=== PATIENT | female | born 1965 | race Caucasian/White ===

== ENCOUNTER → 2019-05-23 10:05 | Outpatient (BNVA) | payer MEDICARE, SELFPAY | PROVIDERS: Family Provider Nurse Practitioner Family; PCP Nurse Practitioner Family; Referring Provider Nurse Practitioner; Visit Provider Podiatrist Foot & Ankle Surgery | DX: M79.671 Pain in right foot (principal); M79.672 Pain in left foot; Z53.9 Procedure and treatment not carried out, unspecified reason | CPT/HCPCS: 73630; 77077 ==

== ENCOUNTER → 2019-05-25 12:52 | Outpatient (BNVA) | payer MEDICARE, SELFPAY | PROVIDERS: Family Provider Nurse Practitioner Family; PCP Nurse Practitioner Family; Visit Provider Nurse Practitioner | DX: M54.5 Low back pain (principal); Z79.891 Long term (current) use of opiate analgesic | CPT/HCPCS: 99213 ==

== ENCOUNTER → 2019-07-20 13:16 | Outpatient (BNVA) | payer MEDICARE, SELFPAY | PROVIDERS: Family Provider Nurse Practitioner Family; PCP Nurse Practitioner Family; Visit Provider Nurse Practitioner | DX: Z76.89 Persons encountering health services in other specified circumstances (principal) | CPT/HCPCS: 99212 ==

== ENCOUNTER → 2019-09-27 09:20 | Outpatient (BNVA) | payer MEDICARE, SELFPAY | PROVIDERS: Family Provider Nurse Practitioner Family; PCP Nurse Practitioner Family; Visit Provider Anesthesiology | DX: M54.41 Lumbago with sciatica, right side (principal); M47.816 Spondylosis without myelopathy or radiculopathy, lumbar region; G62.9 Polyneuropathy, unspecified; Z79.891 Long term (current) use of opiate analgesic | CPT/HCPCS: 99213; 99214 ==

== ENCOUNTER → 2019-11-09 11:09 | Outpatient (BNVA) | payer MEDICARE, SELFPAY | PROVIDERS: Family Provider Nurse Practitioner Family; PCP Nurse Practitioner Family; Visit Provider Specialist | DX: M25.551 Pain in right hip (principal) | CPT/HCPCS: 73502 ==

== ENCOUNTER → 2019-11-23 13:14 | Outpatient (BNVA) | payer MEDICARE, SELFPAY | PROVIDERS: Family Provider Nurse Practitioner Family; PCP Nurse Practitioner Family; Visit Provider Anesthesiology | DX: M47.816 Spondylosis without myelopathy or radiculopathy, lumbar region (principal); G62.9 Polyneuropathy, unspecified; Z79.891 Long term (current) use of opiate analgesic | CPT/HCPCS: 99213; 99214 ==

== ENCOUNTER → 2019-12-16 12:08 | Outpatient (BNVA) | payer MEDICARE, SELFPAY | PROVIDERS: Family Provider Nurse Practitioner Family; PCP Nurse Practitioner Family; Visit Provider Nurse Practitioner Family | DX: N39.0 Urinary tract infection, site not specified (principal); A49.9 Bacterial infection, unspecified; Z79.899 Other long term (current) drug therapy; Z13.6 Encounter for screening for cardiovascular disorders; E55.9 Vitamin D deficiency, unspecified; R53.83 Other fatigue; R10.9 Unspecified abdominal pain | CPT/HCPCS: 74018; 80053; 81003; 87077; 87086; 87186 ==

== ENCOUNTER → 2020-01-18 13:39 | Outpatient (BNVA) | payer MEDICARE, SELFPAY | PROVIDERS: Family Provider Nurse Practitioner Family; PCP Nurse Practitioner Family; Visit Provider Anesthesiology | DX: M47.816 Spondylosis without myelopathy or radiculopathy, lumbar region (principal); G62.9 Polyneuropathy, unspecified; Z79.1 Long term (current) use of non-steroidal anti-inflammatories (NSAID); Z79.891 Long term (current) use of opiate analgesic | CPT/HCPCS: 99213; 99214 ==

== ENCOUNTER → 2020-03-28 10:01 | Outpatient (BNVA) | payer MEDICARE, SELFPAY | PROVIDERS: Family Provider Nurse Practitioner Family; PCP Nurse Practitioner Family; Visit Provider Anesthesiology | DX: M47.816 Spondylosis without myelopathy or radiculopathy, lumbar region (principal); G62.9 Polyneuropathy, unspecified; M25.551 Pain in right hip; Z79.891 Long term (current) use of opiate analgesic; Z79.1 Long term (current) use of non-steroidal anti-inflammatories (NSAID) | CPT/HCPCS: 99213 ==

== ENCOUNTER → 2020-04-23 14:43 | Outpatient (BNVA) | payer MEDICARE, SELFPAY | PROVIDERS: Family Provider Nurse Practitioner Family; PCP Nurse Practitioner Family; Visit Provider Nurse Practitioner Family | DX: K21.9 Gastro-esophageal reflux disease without esophagitis (principal); Z12.31 Encounter for screening mammogram for malignant neoplasm of breast; E78.2 Mixed hyperlipidemia; Z79.899 Other long term (current) drug therapy; R53.83 Other fatigue; A49.9 Bacterial infection, unspecified; N39.0 Urinary tract infection, site not specified; Z13.6 Encounter for screening for cardiovascular disorders; E55.9 Vitamin D deficiency, unspecified | CPT/HCPCS: 80053; 80061; 81003; 82306; 83036; 84443; 85025; 87077; 87086; 87184 ==

== ENCOUNTER → 2020-05-23 12:52 | Outpatient (BNVA) | payer MEDICARE, SELFPAY | PROVIDERS: Family Provider Nurse Practitioner Family; PCP Nurse Practitioner Family; Visit Provider Nurse Practitioner | DX: M47.816 Spondylosis without myelopathy or radiculopathy, lumbar region (principal); M54.5 Low back pain; G62.9 Polyneuropathy, unspecified; Z79.1 Long term (current) use of non-steroidal anti-inflammatories (NSAID); Z79.891 Long term (current) use of opiate analgesic | CPT/HCPCS: 99213 ==

== ENCOUNTER 2020-05-31 09:17 | Outpatient (CLI) | payer MEDICARE, SELFPAY ==
--- NOTE | 2020-05-31 10:00 | MM_ITS ---
WS: [id number] BILATERAL SCREENING DIGITAL MAMMOGRAM WITH CAD HISTORY: Z12.31 - Encounter for screening mammogram for malignant neoplasm of breast COMPARISON: 03/06/2015 Bilateral CC and MLO views submitted. Computer aided detection analyzed. Breast composition: There are scattered areas of fibroglandular density. No suspicious masses, microc alcifications or architectural distortion. Benign calcifications in each breast. MM/[place] [id number] IMPRESSION: BI-RADS: 2-Benign FOLLOW UP: 1 Year Follow-up
== END 2020-05-31 09:18 | disposition home or self-care (01) ==
LOC: RADSHAW 09:19
PROVIDERS: PCP Nurse Practitioner Family; Visit Provider Nurse Practitioner Family
DX: Z12.31 Encounter for screening mammogram for malignant neoplasm of breast (principal)
CPT/HCPCS: 77067

== ENCOUNTER → 2020-07-24 10:17 | Outpatient (BNVA) | payer MEDICARE, SELFPAY | PROVIDERS: PCP Nurse Practitioner Family; Visit Provider Nurse Practitioner | DX: M54.5 Low back pain (principal); G62.9 Polyneuropathy, unspecified; S73.191A Other sprain of right hip, initial encounter; X58.XXXA Exposure to other specified factors, initial encounter; Z79.1 Long term (current) use of non-steroidal anti-inflammatories (NSAID); Z79.891 Long term (current) use of opiate analgesic | CPT/HCPCS: 99213 ==

== ENCOUNTER → 2020-09-21 13:03 | Outpatient (BNVA) | payer MEDICARE, SELFPAY | PROVIDERS: PCP Nurse Practitioner Family; Visit Provider Nurse Practitioner | DX: M47.816 Spondylosis without myelopathy or radiculopathy, lumbar region (principal); G62.9 Polyneuropathy, unspecified; S73.191A Other sprain of right hip, initial encounter; X58.XXXA Exposure to other specified factors, initial encounter; Z79.1 Long term (current) use of non-steroidal anti-inflammatories (NSAID); Z79.891 Long term (current) use of opiate analgesic | CPT/HCPCS: 99213 ==

== ENCOUNTER → 2020-11-20 12:35 | Outpatient (BNVA) | payer MEDICARE, SELFPAY | PROVIDERS: PCP Nurse Practitioner Family; Visit Provider Nurse Practitioner | DX: M47.816 Spondylosis without myelopathy or radiculopathy, lumbar region (principal); M25.551 Pain in right hip; G62.9 Polyneuropathy, unspecified; Z79.1 Long term (current) use of non-steroidal anti-inflammatories (NSAID); Z79.891 Long term (current) use of opiate analgesic | CPT/HCPCS: 99213 ==

== ENCOUNTER → 2021-01-17 12:38 | Outpatient (BNVA) | payer MEDICARE, SELFPAY | PROVIDERS: PCP Nurse Practitioner Family; Visit Provider Nurse Practitioner | DX: M47.816 Spondylosis without myelopathy or radiculopathy, lumbar region (principal); S73.191A Other sprain of right hip, initial encounter; M25.561 Pain in right knee; G62.9 Polyneuropathy, unspecified; X58.XXXA Exposure to other specified factors, initial encounter; Z79.1 Long term (current) use of non-steroidal anti-inflammatories (NSAID); Z79.891 Long term (current) use of opiate analgesic | CPT/HCPCS: 99213 ==

== ENCOUNTER → 2021-02-05 11:16 | Outpatient (BNVA) | payer MEDICARE, SELFPAY | PROVIDERS: PCP Nurse Practitioner Family; Visit Provider Nurse Practitioner Family | DX: K21.9 Gastro-esophageal reflux disease without esophagitis (principal); E78.2 Mixed hyperlipidemia; E66.01 Morbid (severe) obesity due to excess calories; Z79.899 Other long term (current) drug therapy; E55.9 Vitamin D deficiency, unspecified; R07.89 Other chest pain; Z87.19 Personal history of other diseases of the digestive system; R19.5 Other fecal abnormalities; N39.0 Urinary tract infection, site not specified; A49.9 Bacterial infection, unspecified | CPT/HCPCS: 80053; 80061; 81003; 82306; 83036; 84439; 84443; 85025; 87077; 87086; 87184 ==

== ENCOUNTER → 2021-02-14 11:32 | Outpatient (BNVA) | payer MEDICARE, SELFPAY | PROVIDERS: PCP Nurse Practitioner Family; Visit Provider Nurse Practitioner Family | DX: J06.9 Acute upper respiratory infection, unspecified (principal); E66.01 Morbid (severe) obesity due to excess calories; N39.0 Urinary tract infection, site not specified; A49.9 Bacterial infection, unspecified | CPT/HCPCS: 81003; 87086 ==

== ENCOUNTER → 2021-03-20 11:01 | Outpatient (BNVA) | payer MEDICARE, SELFPAY | PROVIDERS: PCP Nurse Practitioner Family; Visit Provider Anesthesiology | DX: M47.816 Spondylosis without myelopathy or radiculopathy, lumbar region (principal); G62.9 Polyneuropathy, unspecified; Z79.891 Long term (current) use of opiate analgesic | CPT/HCPCS: 99213; 99214 ==

== ENCOUNTER → 2021-03-21 11:51 | Outpatient (BNVA) | payer MEDICARE, SELFPAY | PROVIDERS: PCP Nurse Practitioner Family; Visit Provider Nurse Practitioner Family | DX: R94.4 Abnormal results of kidney function studies (principal) | CPT/HCPCS: 80053; 81003; 82043; 85025 ==

== ENCOUNTER 2021-03-27 09:53 | Outpatient (CLI) | payer MEDICARE, SELFPAY ==
--- NOTE | 2021-03-27 10:15 | US_ITS ---
WS: [id number] ULTRASOUND ABDOMEN CLINICAL INFORMATION: Z87.19 - Personal history of other diseases of the digest... COMPARISON: None. FINDINGS: Technically difficult exam Liver Size: Normal. Craniocaudal length: 15.7 cm. Echogenicity: Coarse Surface nodularity: None. Mass (size and location): None. Bile ducts Intrahepatic ducts: Normal. Gallbladder Normal Gallstones: None. Gallbladder sludge: None. Gallbladder wall thickening: None. Pericholecystic fluid: None. Sonographic James sign: Absent. Pancreas Normal as visualized. Spleen Splenomegaly: None. Craniocaudal length: 10.0 cm. Right kidney: Normal. Hydronephrosis: None. Size: 12.4 cm x 3.4 cm x 5.2 cm Left kidney: Normal. Hydronephrosis: None. Size: 12.1 cm x 3.8 cm x 5.3 cm. Abdominal aorta and IVC Visualized portions are normal. Ascites: None. US/US abdomen complete* [id number] IMPRESSION: Technically difficult examination 1. Diffuse fatty infiltration liver. 2. Gallbladder appears normal. No cholelithiasis. No gallbladder wall thickeni ng or pericholecystic fluid. 3. No hydronephrosis in either kidney.
== END 2021-03-27 09:54 | disposition home or self-care (01) ==
LOC: US 09:54
PROVIDERS: PCP Nurse Practitioner Family; Visit Provider Nurse Practitioner Family
DX: Z87.19 Personal history of other diseases of the digestive system (principal); K76.0 Fatty (change of) liver, not elsewhere classified
CPT/HCPCS: 76700

== ENCOUNTER → 2021-04-22 08:55 | Outpatient (BNVA) | payer MEDICARE, SELFPAY | PROVIDERS: PCP Nurse Practitioner Family; Visit Provider Surgery | DX: K21.9 Gastro-esophageal reflux disease without esophagitis (principal) | CPT/HCPCS: 87635 ==

== ENCOUNTER 2021-04-25 07:23 | Day surgery (SDC) | payer MEDICARE, OTHER, SELFPAY ==
[2021-04-23 09:50] VITALS: BMI 36.0
--- NOTE | 2021-04-25 07:56 | ANES.PREANE2 ---
Pre-Anesthetic Assessment Pre-Anesthetic Assessment: Height/Weight: Height 1.6 m Weight 95.254 kg Proposed Procedure: Operation Date: 04/25/21 09:15 Proposed Procedures p EGD 65084 K21.9(Not Applicable) - Vinicius Ohara MD Was Beta Alfonso taken within 24 hours: N/A Was Clonidine taken within 24 hours: N/A Social: Social History: No alcohol and No tobacco Exam: Pre-Anes Outpt Exam: alert, oriented x 3, clear to auscultation bilaterally and regular rate & rhythm Airway: Submandibular: WNL Cervical ROM: WNL MP: 2 Dentition: Full GI: GI: GERD Metabolic: Metabolic: Morbid obesity Musc/skel: Musc/skel: Lower Back Pain and OA/DJD Comments: Chronic pain/opioid Neuropsych: Neuropsych: Anxiety and Depression Anesthetic Plan: ASA status: 3 Anesthesia: MAC Risk of > 500 ml blood loss (7ml/kg in children): No PFSH Anesthesia PFSH: Medical History Abnormal renal function test Bacterial UTI BMI 35.0-35.9,adult Breast cancer screening by mammogram Prem-colored stools Constipation DDD (degenerative disc disease) Cervical and Lumbar Encounter for long-term (current) use of NSAIDs Gastroesophageal reflux disease H/O cholecystitis Long-term current use of opiate analgesic Lumbar radiculitis Medication management Menopausal symptoms Mixed hyperlipidemia Morbid obesity Neuropathy Sensation of chest pressure Spondylosis without myelopathy or radiculopathy, lumbar region Vitamin D deficiency Surgical History History of bladder surgery History of hysterectomy Hx of tubal ligation Family History Other CAD (coronary artery disease) Cancer Chronic kidney disease (CKD) Dementia Diabetes Family history of premature coronary artery disease Hyperlipidemia Hypertension Denies family history of Clotting disorder Psychiatric illness Suicide Anesthesia complication Bleeding disorder Lung disease Stroke Social History Smoking and tobacco status: never smoked Second hand smoke exposure: No Alcohol intake: never Desire information about alcohol rehabilitation?: No Marital status: Current occupational status: employed Current occupation: caregiver independent living History of recent travel: No Data Anesthesia Cardiac Studies: No Data to Display
[2021-04-25 08:17] VITALS: BP 170/96; PULSE 67; RESP 18; TEMP 36.1; O2SAT 95
[2021-04-25] MEDS: sodium chloride 0.9% 1,000 ML 30 ML IV (08:22)
--- NOTE | 2021-04-25 09:06 | W.PM.OPSFHP ---
Same Day Surgery H&P Indication for Procedure/HPI DATE OF PROCEDURE: April 25, 2021 CHIEF COMPLAINT/INDICATIONFOR SURGICAL PROCEDURE: Acid reflux PREOP DIAGNOSIS: Acid reflux associated with morbid obesity PLANNED PROCEDRUE: Operation Date: 04/25/21 09:15 Proposed Procedures p EGD 61606 K21.9(Not Applicable) - Vinicius Ohara MD This is a pleasant 56 years old female patient morbidly obese with associated multiple medical comorbidities including but not limited to persistent acid reflux in spite of being on PPI therapy for more than 6 months ROS All systems have been reviewed negative except as per the above or per problem list Medications/Allergies* Home Medications Medication Instructions Recorded Confirmed Type potassium gluconate 595 mg (99 mg) 595 mg PO DAILY 03/20/21 04/25/21 History tablet esomeprazole magnesium 40 mg PO DAILY 04/23/21 04/25/21 History paroxetine HCl 10 mg PO DAILY 04/23/21 04/25/21 History Allergies/Adverse Reactions Allergy/AdvReac Type Severity Reaction Status Date / Time meloxicam AdvReac VOMITING/ Verified 04/25/21 09:07 NAUSEA pregabalin [From Lyrica] AdvReac N/V Verified 04/25/21 09:07 tramadol AdvReac ABD PAIN, Verified 04/25/21 09:07 N/V Current Medications: Generic Name Dose Route Start Last Admin Trade Name Freq PRN Reason Stop Dose Admin Sodium Chloride 1,000 mls @ 30 mls/hr 04/25/21 08:15 04/25/21 08:22 Sodium Chloride 0.9% IV 30 mls/hr .Q24H LESTER Administration Pertinent History/Comorbid Conditions* Medical History (Updated 03/21/21 @ 11:47 by JANKI Calixto) Abnormal renal function test Bacterial UTI BMI 35.0-35.9,adult Breast cancer screening by mammogram Prem-colored stools Constipation DDD (degenerative disc disease) Cervical and Lumbar Encounter for long-term (current) use of NSAIDs Gastroesophageal reflux disease H/O cholecystitis Long-term current use of opiate analgesic Lumbar radiculitis Medication management Menopausal symptoms Mixed hyperlipidemia Morbid obesity Neuropathy Sensation of chest pressure Spondylosis without myelopathy or radiculopathy, lumbar region Vitamin D deficiency Surgical History (Updated 05/25/19 @ 13:28 by IGLESIA Mckoy) History of bladder surgery History of hysterectomy Hx of tubal ligation Family History (Updated 05/23/19 @ 10:24 by Kristin Gan LPN) Diabetes CAD (coronary artery disease) Dementia Hyperlipidemia Chronic kidney disease (CKD) Family history of premature coronary artery disease Cancer Hypertension Denies family history of Clotting disorder Psychiatric illness Suicide Anesthesia complication Bleeding disorder Lung disease Stroke Social History Smoking and tobacco status: never smoked Second hand smoke exposure: No Alcohol intake: never Desire information about alcohol rehabilitation?: No Marital status: Current occupational status: employed Current occupation: caregiver independent living History of recent travel: No Pertinent Exam Findings alert, oriented x 3 and procedure specific exam findings (Abdominal examination nontender nondistended soft) Recommendations Surgery/Procedure today (EGD with possible biopsy) Other Plans: Plan of care; After thorough history and physical examination and reviewing the chart, plan to perform a diagnostic esophagogastroduodenoscopy with possible biopsy in the GI lab. I discussed with the patient in detail the risk,benefits,alternatives and indications.The risk of aspiration, bleeding, soft tissue injury, perforation of the stomach/esophagus and other potential concomitant complications were explained to the patient in details,aslo the potential need for Thoracic and or Abdominal surgery to repair any complications.The patient understood this well and did agree to proceed. Rationale was carefully and clearly discussed with the patient.Appropriate informed consent have been reviewed and signed All questions have been answered and all concerns have been addressed to patient's satisfaction. Coding Level of Care Code Acute Strike Planning Applications for Sid Delgado
[2021-04-25 10:18] VITALS: BP 155/84; PULSE 66; RESP 18; TEMP 36.9; O2SAT 97
[2021-04-25 10:39] VITALS: BP 152/82; PULSE 64; RESP 16; O2SAT 98
--- NOTE | 2021-04-25 11:19 | ANE.PACU2 ---
Inpatient post-anesthesia follow up: Airway intact: Yes Vital signs: Temperature 98.4 F Pulse Rate 64 Respiratory Rate 16 Blood Pressure 152/82 Pulse Oximetry 98 Oxygen Delivery Me thod Room Air Oxygen Flow Rate 4 Fraction of Inspir ed Oxygen Hydration adequate: Yes Nausea and vomiting: No Pain level: 1 Mental status: Baseline
== END 2021-04-25 10:47 | disposition home or self-care (01) ==
PROVIDERS: PCP Nurse Practitioner Family; Visit Provider Surgery
PROC: 0DJ08ZZ Inspection of Upper Intestinal Tract, Via Natural or Artificial Opening Endoscopic (ICD-10-PCS; CPT 43235; principal; 2021-04-25 09:15)
DX: K21.9 Gastro-esophageal reflux disease without esophagitis (principal); K44.9 Diaphragmatic hernia without obstruction or gangrene; K29.70 Gastritis, unspecified, without bleeding; K31.7 Polyp of stomach and duodenum; E66.01 Morbid (severe) obesity due to excess calories; Z68.37 Body mass index [BMI] 37.0-37.9, adult; Z79.1 Long term (current) use of non-steroidal anti-inflammatories (NSAID); Z79.891 Long term (current) use of opiate analgesic; E78.2 Mixed hyperlipidemia; Z82.49 Family history of ischemic heart disease and other diseases of the circulatory system; Z83.3 Family history of diabetes mellitus
CPT/HCPCS: 43239; 88305; 96360; 96361; J2704; J7030

== ENCOUNTER → 2021-05-17 09:46 | Outpatient (BNVA) | payer MEDICARE, SELFPAY | PROVIDERS: PCP Nurse Practitioner Family; Visit Provider Anesthesiology | DX: M47.816 Spondylosis without myelopathy or radiculopathy, lumbar region (principal); M25.551 Pain in right hip; M25.569 Pain in unspecified knee; Z79.891 Long term (current) use of opiate analgesic | CPT/HCPCS: 99213 ==

== ENCOUNTER 2021-07-02 08:08 | Outpatient (CLI) | payer MEDICARE, OTHER, SELFPAY ==
--- NOTE | 2021-07-02 08:11 | FL_ITS ---
WS: [id number] Barium swallow and esophagram, upper GI series with air, 07/02/2021 Clinical Data: K29.70 - Gastritis, unspecified, without bleeding Comparison: None. Fluoroscopy time: 1.4 minutes. Findings: The patient swallowed the thick and thin barium, and it flowed to the hypopharynx without hesitation. No stricture, mass, polyp or erosion was seen. The barium entered the esophagus and there was poor motility throughout. There is a large hiatal ranjan ia present. Approximately one third of the stomach is above the left diaphragm. No reflux was seen. N o erosion or ulceration of the distal esophagus was seen. The barium passed into the stomach which wa s well distended. No erosion, polyp, mass or deformity could be seen. No gastric ulcer was present. Barium then passed into the duodenal bulb which distended normally without ulceration. The proximal small bowel is normal. FL/FL upper GI w air* [id number] Impression: 1. Large hiatal hernia with approximately one third of the stomach above the le ft diaphragm. 2. Negative for reflux, erosion or ulceration of the esophagus, stomach or duod enal bulb.
== END 2021-07-02 08:09 | disposition home or self-care (01) ==
LOC: RAD 08:09
PROVIDERS: PCP Nurse Practitioner Family; Visit Provider Surgery
DX: K29.70 Gastritis, unspecified, without bleeding (principal); K44.9 Diaphragmatic hernia without obstruction or gangrene
CPT/HCPCS: 74246

== ENCOUNTER → 2021-09-04 14:23 | Outpatient (BNVA) | payer MEDICARE, OTHER, SELFPAY | PROVIDERS: PCP Family Medicine; Visit Provider Surgery | DX: K44.9 Diaphragmatic hernia without obstruction or gangrene (principal) | CPT/HCPCS: 99213 ==

== ENCOUNTER → 2021-11-21 14:19 | Outpatient (BNVA) | payer MEDICARE, OTHER, SELFPAY | PROVIDERS: PCP Family Medicine; Visit Provider Family Medicine | DX: M47.816 Spondylosis without myelopathy or radiculopathy, lumbar region (principal); E66.01 Morbid (severe) obesity due to excess calories; K29.70 Gastritis, unspecified, without bleeding; G62.9 Polyneuropathy, unspecified; G89.29 Other chronic pain; Z02.89 Encounter for other administrative examinations; Z79.899 Other long term (current) drug therapy | CPT/HCPCS: 80307 ==

== ENCOUNTER 2022-01-09 16:52 | Emergency (ER) | payer MEDICARE, SELFPAY ==
[2022-01-09 16:55] VITALS: BP 176/70; PULSE 75; RESP 18; TEMP 36.9; O2SAT 95; BMI 36.7
--- NOTE | 2022-01-09 17:32 | XRR_ITS ---
PROCEDURE INFORMATION: Exam: XR Chest Exam date and time: 01/09/2022 5:59 PM Age: 56 years old Clinical indication: Cough; Additional info: Cough, congestion, dyspnea TECHNIQUE: Imaging protocol: Radiologic exam of the chest. Views: 1 view. COMPARISON: CT chest w con* [id number] 09/04/2015 9:47 PM FINDINGS: Lungs: Unremarkable. No consolidation. Pleural spaces: Unremarkable. No pleural effusion. No pneumothorax. Heart/Mediastinum: Stable moderate intrathoracic hiatal hernia. Bones/joints: Unremarkable. XR/XR chest 1V portable [id number] IMPRESSION: 1. Stable moderate intrathoracic hiatal hernia. 2. No obvious active infiltrate or failure.
--- NOTE | 2022-01-09 17:33 | W.ED.URI ---
HPI - URI/Sore Throat General: Chief Complaint: Upper Respiratory Infection Stated Complaint: SOB, sent by Time Seen by Provider: 01/09/22 17:11 History of Present Illness: 56-year-old female comes in today with complaints of cough and congestion in the chest. Patient reports illness for the last 2 days. Patient was seen by her home health nurse today and was recommended to be evaluated. Patient had recently had a knee surgery done last week. Patient appears nontoxic. Patient appears in no pain. Patient does have a history of chronic pain, gastritis, and GERD. Patient did admit to a history of asthma in childhood. Associated symptoms: Deny fever(s) or vomiting Review of Systems Const: Denies: fever(s) Resp: Reports: dyspnea and non-productive cough GI: Denies: vomiting Skin/Breast: Denies: rash PFSH ED PFSH: Medical History Abnormal renal function test Bacterial UTI BMI 35.0-35.9,adult Breast cancer screening by mammogram Chronic pain Prem-colored stools Constipation DDD (degenerative disc disease) Cervical and Lumbar Encounter for long-term (current) use of NSAIDs Gastroesophageal reflux disease H/O cholecystitis Long-term current use of opiate analgesic Lumbar radiculitis Medication management Menopausal symptoms Mixed hyperlipidemia Morbid obesity Neuropathy Sensation of chest pressure Spondylosis without myelopathy or radiculopathy, lumbar region Vitamin D deficiency Surgical History History of bladder surgery History of hysterectomy Hx of tubal ligation Family History Other CAD (coronary artery disease) Cancer Chronic kidney disease (CKD) Dementia Diabetes Family history of premature coronary artery disease Hyperlipidemia Hypertension Denies family history of Clotting disorder Psychiatric illness Suicide Anesthesia complication Bleeding disorder Lung disease Stroke Social History Smoking and tobacco status: never smoked Second hand smoke exposure: No Alcohol intake: never Desire information about alcohol rehabilitation?: No Marital status: Current occupational status: employed Current occupation: caregiver independent living History of recent travel: No Physical Exam Const: COMMON NORMALS: alert HENMT: COMMON NORMALS: normocephalic HEAD & SCALP: normocephalic NOSE: Nasal discharge present Neck/C-Spine: COMMON NORMALS: full ROM Resp: COMMON NORMALS: normal respiratory effort AUSCULTATION: wheezes expiratory wheezes Cardio: COMMON NORMALS: regular rate and regular rhythm RATE: regular rate RHYTHM: regular rhythm Extremity: COMMON NORMALS: no pedal edema NARRATIVE EXTREMITY EXAM: Mild right lower extremity swelling, no calf pain. Neuro: SENSORIUM/ORIENTATION: Yes alert Skin: COMMON NORMALS: turgor normal GENERAL SKIN EXAM: turgor normal Course Vital Signs: Vital signs: Vital Signs Temperature 98.5 F 01/09/22 16:55 Pulse Rate 74 01/09/22 18:06 Respiratory Rate 18 01/09/22 18:06 Blood Pressure 176/70 01/09/22 16:55 Pulse Oximetry 96 01/09/22 18:06 Oxygen Delivery Me thod 01/09/22 18:06 MDM - URI/Sore Throat Medical Decision Making 56-year-old female comes in today for complaints of cough and congestion for the last 2 to 3 days. Patient is concerned because of recent surgery. On exam patient had some auscultated expiratory wheezes. Decreased air movement in the lower lung lobato. Heart rate is regular. No edema is noted in lower extremities. Patient does have some mild swelling to the right knee due to recent surgery. Differential diagnosis includes not limited to pneumonia, bronchitis, asthma. Chest x-ray noted no specific consolidation suggestive of pneumonia. Patient had a negative COVID test at home. We will treat patient for acute bronchitis with doxycycline, 10 mg of dexamethasone IM, and a new albuterol inhaler. Patient reported understanding of care plan need for follow-up or return to the ER. Discharge Plan Discharge Patient Disposition: Home Clinical Impression: Bronchitis after surgery Condition: Stable Prescriptions: New doxycycline monohydrate 100 mg capsule 100 mg PO BID 7 Days Qty: 14 0RF No Action potassium gluconate 595 mg (99 mg) tablet 595 mg PO DAILY ibuprofen 800 mg tablet 800 mg PO BID PRN (Reason: pain) Qty: 180 2RF Hold Instructions: Resume on 05/01/21. esomeprazole magnesium 40 mg capsule,delayed release(DR/EC) See Rx Instructions .ROUTE .COMPLEX Qty: 90 1RF Dose Instruction: TAKE 1 CAPSULE BY MOUTH DAILY Rx Instructions: TAKE 1 CAPSULE BY MOUTH DAILY gabapentin 600 mg tablet 600 mg PO BID 90 Days Qty: 180 1RF hydrocodone-acetaminophen 10-325 mg tablet 1 tab PO .6 times a day PRN (Reason: Pain) 30 Days Qty: 180 0RF Rx Instructions: donot fill before 12/22/2021 phentermine 37.5 mg tablet 37.5 mg PO DAILY 30 Days Qty: 30 0RF Rx Instructions: must administer 30 minutes before or 1-2 hours after breakfast donot fill before 12/22/2021 liraglutide 0.6 mg/0.1 mL (18 mg/3 mL) pen injector 0.6 mg SUBCUT DAILY Qty: 6 3RF tizanidine 4 mg tablet See Rx Instructions .ROUTE .COMPLEX Qty: 90 0RF Dose Instruction: TAKE 1 TABLET BY MOUTH THREE TIMES DAILY NEEDED FOR MUSCLE SPASMS Rx Instructions: TAKE 1 TABLET BY MOUTH THREE TIMES DAILY NEEDED FOR MUSCLE SPASMS Discharge Orders: Discharge ED (Routine); Ordered 01/09/22 Ordered By: Tien Moreno Referrals: Pee Allred MD [Primary Care Provider] - Discharge Diet: Usual diet Discharge Activity: Increase activity as tolerated Patient Instructions: Acute Bronchitis (ED) Activity Restrictions/Additional Instructions: Take medication as directed. Use inhaler 2 puffs every 4 hours as needed for cough, congestion, or shortness of breath. Follow-up with primary care in 2 to 3 days for recheck. Return to ER for severe chest pain, increased shortness of breath, or new concerns. Coding Level of Care Code ED Supervisor Forming Department for Sid Fwd Exam Detailed
[2022-01-09] MEDS: albuterol 8 gm MDI 2 PUFF INHALATION (18:01)
[2022-01-09 18:06] VITALS: PULSE 74; RESP 18; O2SAT 96
[2022-01-09] MEDS: dexamethasone 10 mg/mL INJ IM (18:24)
[2022-01-09] MEDS: doxycycline 100 mg Tablet PO (18:24)
[2022-01-09 18:29] VITALS: BP 151/82; PULSE 70; RESP 17; TEMP 36.6; O2SAT 95
== END 2022-01-09 18:34 | disposition home or self-care (01) ==
PROVIDERS: Emergency Provider Nurse Practitioner Family; PCP Family Medicine
DX: J40 Bronchitis, not specified as acute or chronic (principal); Z79.899 Other long term (current) drug therapy; E78.2 Mixed hyperlipidemia
CPT/HCPCS: 71045; 94640; 96372; 99284; J1100; J3535

== ENCOUNTER → 2022-06-18 13:43 | Outpatient (BNVA) | payer MEDICARE, SELFPAY | PROVIDERS: PCP Family Medicine; Visit Provider Family Medicine | DX: M47.816 Spondylosis without myelopathy or radiculopathy, lumbar region (principal); E66.01 Morbid (severe) obesity due to excess calories; Z79.899 Other long term (current) drug therapy; K29.70 Gastritis, unspecified, without bleeding; G89.29 Other chronic pain; E66.9 Obesity, unspecified; Z79.1 Long term (current) use of non-steroidal anti-inflammatories (NSAID); Z79.891 Long term (current) use of opiate analgesic | CPT/HCPCS: 80307 ==

== ENCOUNTER → 2023-01-28 11:15 | Outpatient (BNVA) | payer MEDICARE, SELFPAY | PROVIDERS: PCP Family Medicine; Visit Provider Family Medicine | DX: Z23 Encounter for immunization (principal); E78.2 Mixed hyperlipidemia; Z79.899 Other long term (current) drug therapy; Z79.1 Long term (current) use of non-steroidal anti-inflammatories (NSAID); Z71.89 Other specified counseling; F41.9 Anxiety disorder, unspecified; Z98.84 Bariatric surgery status; K44.9 Diaphragmatic hernia without obstruction or gangrene | CPT/HCPCS: 80053; 80061; 82306; 82607; 82746; 84443; 85025 ==

== ENCOUNTER 2023-02-16 17:39 | Emergency (ER) | payer MEDICARE, SELFPAY ==
[2023-02-16 17:50] VITALS: BP 171/89; PULSE 83; RESP 18; TEMP 36.6; O2SAT 98; BMI 27.1
--- NOTE | 2023-02-16 18:13 | XRR_ITS ---
PROCEDURE INFORMATION: Exam: XR Chest Exam date and time: 02/16/2023 6:20 PM Age: 57 years old Clinical indication: Shortness of breath; Additional info: SOB TECHNIQUE: Imaging protocol: Radiologic exam of the chest. Views: 1 view. COMPARISON: CR XR chest 1V portable [id number] 01/09/2022 5:59 PM FINDINGS: Lungs: Unremarkable. No consolidation. Pleural spaces: Unremarkable. No pleural effusion. No pneumothorax. Heart/Mediastinum: Unremarkable. No cardiomegaly. Bones/joints: Unremarkable. XR/XR chest 1V portable [id number] IMPRESSION: No acute findings.
--- NOTE | 2023-02-16 19:25 | W.ED.FEMALGU ---
HPI - Female Genitourinary General: Chief complaint: Urogenital-Female Stated complaint: covid symptoms, also general medical Time Seen by Provider: 02/16/23 19:25 History of Present Illness: 57-year-old female comes in today for complaints of flulike symptoms, urinary tract symptoms, and out of chronic pain medication. Patient appears nontoxic. Patient appears mild pain. Review of Systems General: Reports: 10 or more systems reviewed and unremarkable except in HPI and below Const: Reports: malaise Resp: Reports: non-productive cough : Reports: difficulty voiding PFSH ED PFSH: Medical History Abnormal renal function test Bacterial UTI BMI 35.0-35.9,adult Breast cancer screening by mammogram Chronic pain Prem-colored stools Constipation DDD (degenerative disc disease) Cervical and Lumbar Encounter for long-term (current) use of NSAIDs Gastroesophageal reflux disease H/O cholecystitis Long-term current use of opiate analgesic Lumbar radiculitis Medication management Menopausal symptoms Mixed hyperlipidemia Morbid obesity Neuropathy Sensation of chest pressure Spondylosis without myelopathy or radiculopathy, lumbar region Vitamin D deficiency Surgical History History of bladder surgery History of hysterectomy Hx of tubal ligation Family History Other CAD (coronary artery disease) Cancer Chronic kidney disease (CKD) Dementia Diabetes Family history of premature coronary artery disease Hyperlipidemia Hypertension Denies family history of Clotting disorder Psychiatric illness Suicide Anesthesia complication Bleeding disorder Lung disease Stroke Social History Smoking and tobacco/nicotine status: never used tobacco/nicotine Second hand smoke exposure: No Alcohol intake: never Substance/Drug Use: never Marital status: Current occupational status: employed Current occupation: caregiver independent living Physical Exam Const: COMMON NORMALS: alert HENMT: COMMON NORMALS: normocephalic HEAD & SCALP: normocephalic Neck/C-Spine: COMMON NORMALS: full ROM Resp: COMMON NORMALS: normal respiratory effort and clear to auscultation bilaterally AUSCULTATION: clear to auscultation bilaterally Cardio: COMMON NORMALS: regular rate RATE: regular rate Back/Pelvis: COMMON NORMALS: thoracic and lumbar spine normal to inspection Extremity: COMMON NORMALS: no pedal edema Neuro: SENSORIUM/ORIENTATION: Yes alert Skin: COMMON NORMALS: turgor normal GENERAL SKIN EXAM: turgor normal Course Vital Signs: Vital signs: Vital Signs Temperature 97.9 F 02/16/23 17:50 Pulse Rate 83 02/16/23 17:50 Respiratory Rate 18 02/16/23 17:50 Blood Pressure 171/89 02/16/23 17:50 Pulse Oximetry 98 02/16/23 17:50 Oxygen Delivery Me thod Room Air 02/16/23 17:50 MDM - Female Medical Decision Making Patient comes in today for some complaints of urinary discomfort, flulike symptoms, and being out of her pain medication. On exam patient appears nontoxic. Patient appears in mild discomfort. Respirations are even lungs are clear to auscultation. Vital signs are normal except for some elevated blood pressure. Differential diagnosis includes but not limited to chronic pain management, urinary tract infection, upper respiratory infection, COVID-19. COVID test was negative. Urinalysis did was positive for nitrates and leukocyte esterases. Patient will be treated for urinary tract infection with cephalexin. Patient was given 1 tablet of hydrocodone and recommended to follow-up with specialist or primary care for refills of medicines as she is in a pain contract. Patient reported understanding and agreed to plan. Lab Data Radiology Impressions Chest X-Ray 02/16/23 18:13 IMPRESSION: No acute findings. Laboratory Results Urine Color Yellow (Yellow) 02/16/23 20:05 Urine Appearance Hazy (CLEAR) A 02/16/23 20:05 Urine pH 6 (5-7) 02/16/23 20:05 Ur Specific [place] 1.020 (1.005-1.030) 02/16/23 20:05 Urine Protein 1+ (Negative) H 02/16/23 20:05 Urine Glucose (UA) Norm (Normal) 02/16/23 20:05 Urine Ketones Negative (Negative) 02/16/23 20:05 Urine Blood Neg (Negative) 02/16/23 20:05 Urine Nitrate Positive (Negative) H 02/16/23 20:05 Urine Bilirubin 1+ (Negative) H 02/16/23 20:05 Urine Urobilinogen Neg mg/dL (Negative) 02/16/23 20:05 Ur Leukocyte Esterase 1+ (Negative) H 02/16/23 20:05 Urine RBC 0-4 /hpf (0-2) H 02/16/23 20:05 Urine WBC 5-10 /hpf (0-5) H 02/16/23 20:05 Ur Squamous Epith Cells 5-10 /hpf (0-5) H 02/16/23 20:05 Amorphous Sediment Not Reportable 02/16/23 20:05 Urine Bacteria 3+ /hpf (NONE) H 02/16/23 20:05 SARS-CoV-2 Ag (Rapid) negative (Negative) 02/16/23 20:08 No radiology studies performed this visit Discharge Plan Discharge Patient Disposition: Home Clinical Impression: Bacterial UTI, Pain management contract signed URI (upper respiratory infection) Qualifiers: URI type: unspecified URI Qualified Code(s): J06.9 - Acute upper respiratory infection, unspecified Condition: Stable Prescriptions: New cephalexin 500 mg capsule 500 mg PO BID 7 Days Qty: 14 0RF No Action potassium gluconate 595 mg (99 mg) tablet 595 mg PO DAILY Fluarix Quad (PF) 60 mcg (15 mcg x 4)/0.5 mL syringe 0.5 ml IM ONCE Qty: 0.5 0RF multivitamin Tablet 1 tab PO DAILY 90 Days Qty: 90 1RF mecobalamin (vitamin B12) 1,000 mcg tablet,chewable 1,000 mcg PO DAILY 90 Days Qty: 90 1RF ferrous fumarate 325 mg (106 mg iron) tablet 325 mg PO DAILY 90 Days Qty: 90 0RF alprazolam [Xanax] 0.5 mg tablet 0.5 mg PO BID PRN (Reason: anxiety) 7 Days Qty: 14 0RF tizanidine 4 mg tablet See Rx Instructions .ROUTE .COMPLEX Qty: 90 0RF Dose Instruction: TAKE 1 TABLET BY MOUTH THREE TIMES DAILY NEEDED FOR MUSCLE SPASMS Rx Instructions: TAKE 1 TABLET BY MOUTH THREE TIMES DAILY NEEDED FOR MUSCLE SPASMS hydrocodone-acetaminophen 10-325 mg tablet 1 tab PO .6 times a day PRN (Reason: Pain) 30 Days Qty: 180 0RF gabapentin 600 mg tablet See Rx Instructions .ROUTE .COMPLEX Qty: 270 0RF Dose Instruction: TAKE 1 TABLET BY MOUTH THREE TIMES DAILY FOR PAIN Rx Instructions: TAKE 1 TABLET BY MOUTH THREE TIMES DAILY FOR PAIN pantoprazole [Protonix] 40 mg tablet,delayed release (DR/EC) 40 mg PO DAILY 30 Days Qty: 30 5RF Discharge Orders: Discharge ED (Routine); Ordered 02/16/23 Ordered By: Tien Moreno Referrals: Pee Allred MD [Primary Care Provider] - Discharge Diet: Usual diet Discharge Activity: Increase activity as tolerated Patient Instructions: Urinary Tract Infection in Older Adults (ED), Pain Management Activity Restrictions/Additional Instructions: Follow-up with primary care or ceramic painter for further evaluation and treatment. You have a pain contract with this medical provider and it does not allow us to write for your narcotic prescriptions. You need to go through the medical provider that prescribes the services for your refills. Take antibiotics as directed for urinary tract infection return to ED for new concerns. Coding Level of Care Code ED Pin Setter for Sid Delgado
[2023-02-16 20:30] LABS: Add Urine Microscopic? YES; Bilirubin Urine 1+ (Negative); Blood Urine Neg (Negative); Glucose Urine UA Norm (Normal); Ketones Urine Negative (Negative); Leukocyte Esterase Urine 1+ (Negative); Nitrate Urine Positive (Negative); Protein Urine 1+ (Negative); Urine Appearance Hazy (CLEAR); Urine Color Yellow (Yellow); Urobilinogen Urine Neg (Negative); pH Urine 6 (5-7)
[2023-02-16 20:30] LABS: SARS Covid-2 Antigen negative (Negative)
[2023-02-16 20:31] LABS: Add Urine Culture? Yes; Bacteria Urine 3+ /hpf; RBC Urine 0-4 /hpf (0-2)
[2023-02-16] MEDS: cephALEXin 500 mg Capsule PO (20:57)
[2023-02-16] MEDS: HYDROcodone-acetaminophen 10-325 mg Tablet 1 TAB PO (20:57)
== END 2023-02-16 21:06 | disposition home or self-care (01) ==
PROVIDERS: Emergency Medicine; Emergency Provider Nurse Practitioner Family; PCP Family Medicine
DX: J06.9 Acute upper respiratory infection, unspecified (principal); N39.0 Urinary tract infection, site not specified; B96.89 Other specified bacterial agents as the cause of diseases classified elsewhere; Z79.891 Long term (current) use of opiate analgesic; Z11.52 Encounter for screening for COVID-19; E78.2 Mixed hyperlipidemia
CPT/HCPCS: 71045; 81001; 87077; 87086; 87186; 87426; 99283

== ENCOUNTER → 2023-10-21 09:49 | Outpatient (BNVA) | payer MEDICARE, SELFPAY | PROVIDERS: PCP Nurse Practitioner Family; Visit Provider Nurse Practitioner Family | DX: N39.0 Urinary tract infection, site not specified (principal) | CPT/HCPCS: 81003; 87077; 87086; 87184 ==